=== PATIENT | female | born 1980 | race African-American/Black ===

== ENCOUNTER 2024-07-27 20:58 | Emergency (ER) | payer SELFPAY ==
[~2024-07-27] VITALS: Ht 170.2 cm; Wt 96.2 kg
[2024-07-27] MEDS ORDERED: SODIUM CHLORIDE 0.9% 1000ML 2,000 ML IV STA (21:11)
[2024-07-27 21:15] VITALS: PULSE 59; RESP 16; TEMP 97.9; O2SAT 100
== END 2024-07-27 23:06 | disposition home or self-care (01) ==
LOC: ER 21:11
DX: F10.129 Alcohol abuse with intoxication, unspecified (principal)
CPT/HCPCS: 93005; 99284